=== PATIENT | female | born 1985 | race Hispanic/Latino ===

== ENCOUNTER 2019-03-14 15:40 | Emergency (ER) | payer MEDICAID, OTHER ==
[2019-03-14] MEDS ORDERED: ACETAMINOPHEN 325 MG TAB ONE (16:50)
[2019-03-14 17:00] LABS: APPEARANCE,URINE SL CLOUDY (CLEAR); BILIRUBIN,URINE NEGATIVE (NEGATIVE); COLOR,URINE YELLOW (YELLOW); GLUCOSE, URINE (UA) NEGATIVE (NEGATIVE); KETONES,URINE 15 mg/dL (NEGATIVE); LEUKOCYTE ESTERASE ,URINE NEGATIVE (NEGATIVE); NITRATE,URINE NEGATIVE (NEGATIVE); OCCULT BLOOD,URINE TRACE-INTACT (NEGATIVE); PH,URINE 7.5 (5.0-8.0); PROTEIN,URINE TRACE mg/dL (NEGATIVE)
[2019-03-14 17:02] LABS: HCG,QUAL RESULT NEGATIVE (NEGATIVE)
[2019-03-14 17:17] LABS: BACTERIA,URINE Few /HPF (None Seen); SQUAMOUS EPITHELIAL CELL,UR Moderate /HPF (0-2)
[2019-03-14 17:18] LABS: MUCUS,URINE Few LPF (None Seen)
[2019-03-14 17:27] LABS: RAPID GROUP A STREP NEGATIVE (NEGATIVE)
[2019-03-14] MEDS ORDERED: IBUPROFEN 600 MG TABLET ONE (17:49)
== END 2019-03-14 18:47 | disposition home or self-care (01) ==
LOC: EDH 15:40
DX: H66.92 Otitis media, unspecified, left ear (principal); M79.10 Myalgia, unspecified site
CPT/HCPCS: 81001; 81025; 87804; 87880

== ENCOUNTER 2019-11-08 16:48 | Emergency (ER) | payer SELFPAY ==
[2019-11-08] MEDS ORDERED: ACETAMINOPHEN EXTRA STRENGTH 500 MG TABLET ONE (17:04)
== END 2019-11-08 18:27 | disposition home or self-care (01) ==
LOC: EDH 16:48
DX: S06.0X0A Concussion without loss of consciousness, initial encounter (principal); S16.1XXA Strain of muscle, fascia and tendon at neck level, initial encounter; S00.12XA Contusion of left eyelid and periocular area, initial encounter; S00.11XA Contusion of right eyelid and periocular area, initial encounter; Y08.89XA Assault by other specified means, initial encounter; Y93.89 Activity, other specified; Y92.098 Other place in other non-institutional residence as the place of occurrence of the external cause; Y99.8 Other external cause status

== ENCOUNTER 2020-05-28 16:42 | Emergency (ER) | payer OTHER ==
[2020-05-28] MEDS ORDERED: TETRACAINE HCL 0.5% 4 ML OPHTH SOLN ONE (16:53)
[2020-05-28] MEDS ORDERED: FLUORESCEIN SODIUM 1 STRIP STRIP ONE (16:53)
[2020-05-28] MEDS ORDERED: IBUPROFEN 200 MG TAB ONE (17:15)
[2020-05-28 17:37] LABS: APPEARANCE,URINE Clear (CLEAR); BILIRUBIN,URINE Negative (NEGATIVE); COLOR,URINE Yellow (YELLOW); GLUCOSE, URINE (UA) Negative (NEGATIVE); KETONES,URINE Negative (NEGATIVE); LEUKOCYTE ESTERASE ,URINE Small (NEGATIVE); NITRATE,URINE Positive (NEGATIVE); OCCULT BLOOD,URINE Negative (NEGATIVE); PROTEIN,URINE Negative (NEGATIVE)
[2020-05-28 17:53] LABS: RBC,URINE 0-1 /HPF (0-1)
[2020-05-28 17:54] LABS: BACTERIA,URINE Moderate /HPF (None Seen); MUCUS,URINE Rare LPF (None Seen); SQUAMOUS EPITHELIAL CELL,UR Few /HPF (0-2)
[2020-05-28 17:55] LABS: YEAST,URINE BUDDING Rare /HPF (None Seen)
[2020-05-28] MEDS ORDERED: LIDOCAINE HCL-MPF 1% 2ML VIAL ONE (17:59)
[2020-05-28] MEDS ORDERED: CEFTRIAXONE SODIUM 1 GM ONE (18:00)
== END 2020-05-28 18:17 | disposition home or self-care (01) ==
LOC: EDH 16:42
DX: H11.31 Conjunctival hemorrhage, right eye (principal); N39.0 Urinary tract infection, site not specified
CPT/HCPCS: 81001; 81025; 87077; 87088; 87186; 96372; 99284; J0696; J3490

== ENCOUNTER 2021-01-24 12:45 | Emergency (ER) | payer OTHER ==
[2021-01-24] MEDS ORDERED: ACETAMINOPHEN-CODEINE 300/30MG TAB ONE (13:04)
[2021-01-24] MEDS ORDERED: CLINDAMYCIN HCL 150 MG CAP ONE (13:04)
== END 2021-01-24 13:29 | disposition home or self-care (01) ==
LOC: EDH 12:45
DX: J32.0 Chronic maxillary sinusitis (principal); J06.9 Acute upper respiratory infection, unspecified

== ENCOUNTER 2021-07-03 15:00 | Emergency (ER) | payer SELFPAY ==
[~2021-07-03] VITALS: Ht 165.1 cm; Wt 56.7 kg
[2021-07-03 15:01] VITALS: BP 132/83
[2021-07-03] MEDS ORDERED: AMOX-429 PO (15:40)
== END 2021-07-03 15:49 | disposition home or self-care (01) ==
LOC: EDH 15:00
DX: J32.9 Chronic sinusitis, unspecified (principal); H65.93 Unspecified nonsuppurative otitis media, bilateral

== ENCOUNTER 2021-10-03 18:01 | Emergency (ER) | payer OTHER ==
[~2021-10-03] VITALS: Ht 165.1 cm; Wt 56.7 kg
[~2021-10-03 18:01] MED LIST: AMOX-429 PO
[2021-10-03 18:03] VITALS: BP 119/83
[2021-10-03] MEDS ORDERED: IBUP-2070 PO (19:24)
[2021-10-03] MEDS ORDERED: PSEU120T62 PO (19:24)
[2021-10-03] MEDS ORDERED: ACET-3194 PO (19:24)
[2021-10-03] MEDS ORDERED: BROM237S PO (19:24)
[2021-10-03] MEDS ORDERED: ACETAMINOPHEN 500 MG TABLET ONE (19:29)
[2021-10-03] MEDS ORDERED: IBUPROFEN 600 MG TABLET ONE (19:29)
[2021-10-03] MEDS ORDERED: ACETAMINOPHEN 500 MG TABLET PO ONE (19:30)
[2021-10-03] MEDS ORDERED: IBUPROFEN 600 MG TABLET PO ONE (19:30)
== END 2021-10-03 19:53 | disposition home or self-care (01) ==
LOC: EDH 18:01
DX: U07.1 COVID-19 (principal); Z79.899 Other long term (current) drug therapy
CPT/HCPCS: 87635; 87804 ×2; 99283; C9803

== ENCOUNTER 2022-01-01 11:14 | Emergency (ER) | payer OTHER ==
[~2022-01-01] VITALS: Ht 165.1 cm; Wt 57.6 kg
[~2022-01-01 11:14] MED LIST changes: +ACET-3194 PO; +BROM237S PO; +IBUP-2070 PO; +PSEU120T62 PO
[2022-01-01 11:18] VITALS: BP 120/48
[2022-01-01] MEDS ORDERED: IBUP-2070 PO (12:41)
[2022-01-01] MEDS ORDERED: TETANUS/DIPHTHERIA TOXOID [ADULT] 0.5 ML VIAL IM SCH (13:00)
[2022-01-01] MEDS ORDERED: KETOROLAC 30MG VIAL (30MG/ML) IM ONE (13:00)
== END 2022-01-01 13:09 | disposition home or self-care (01) ==
LOC: EDH 11:14
DX: S80.01XA Contusion of right knee, initial encounter (principal); S50.01XA Contusion of right elbow, initial encounter; Z79.899 Other long term (current) drug therapy; Z90.89 Acquired absence of other organs; Z98.890 Other specified postprocedural states; Y08.89XA Assault by other specified means, initial encounter; Y93.89 Activity, other specified; Y92.89 Other specified places as the place of occurrence of the external cause; Y99.8 Other external cause status
CPT/HCPCS: 73070; 73562; 90471; 90714; 96372; 99284; J1885

== ENCOUNTER 2022-02-02 21:33 | Emergency (ER) | payer OTHER ==
[~2022-02-02] VITALS: Ht 165.1 cm; Wt 59.4 kg
[2022-02-02] MEDS ORDERED: CEPH500B PO (23:25)
[2022-02-02] MEDS ORDERED: IBUP-2070 PO (23:25)
[2022-02-02] MEDS ORDERED: IBUPROFEN 800 MG TAB PO ONE (23:30)
[2022-02-02 23:44] VITALS: BP 128/89
[2022-02-07] MEDS ORDERED: CLIN-141 PO (05:07)
== END 2022-02-02 23:47 | disposition home or self-care (01) ==
LOC: EDH 21:33
DX: S50.811A Abrasion of right forearm, initial encounter (principal); L03.113 Cellulitis of right upper limb; Z90.49 Acquired absence of other specified parts of digestive tract; Z79.899 Other long term (current) drug therapy; W57.XXXA Bitten or stung by nonvenomous insect and other nonvenomous arthropods, initial encounter; Y93.89 Activity, other specified; Y92.89 Other specified places as the place of occurrence of the external cause; Y99.8 Other external cause status

== ENCOUNTER 2022-05-14 10:02 | Emergency (ER) | payer OTHER ==
[~2022-05-14] VITALS: Ht 152.4 cm; Wt 57.6 kg
[~2022-05-14 10:02] MED LIST changes: +CEPH500B PO; +CLIN-141 PO
[2022-05-14 10:05] VITALS: BP 108/62
[2022-05-14 10:49] LABS: APPEARANCE,URINE CLEAR (CLEAR); BILIRUBIN,URINE NEGATIVE (NEGATIVE); COLOR,URINE YELLOW (YELLOW); GLUCOSE, URINE (UA) NEGATIVE (NEGATIVE); KETONES,URINE NEGATIVE (NEGATIVE); LEUKOCYTE ESTERASE ,URINE TRACE (NEGATIVE); NITRATE,URINE POSITIVE (NEGATIVE); OCCULT BLOOD,URINE NEGATIVE (NEGATIVE); PROTEIN,URINE NEGATIVE (NEGATIVE)
[2022-05-14 11:01] LABS: HCG,QUALITATIVE URINE NEGATIVE (NEGATIVE)
[2022-05-14 11:18] LABS: BACTERIA,URINE Many /HPF (None Seen); RBC,URINE 0-1 /HPF (0-1); WBC,URINE 0-1 /HPF (0-1)
[2022-05-14 11:19] LABS: MUCUS,URINE Few LPF (None Seen); SQUAMOUS EPITHELIAL CELL,UR Moderate /HPF (0-2)
[2022-05-14] MEDS ORDERED: PHEN-847 PO (11:23)
[2022-05-14] MEDS ORDERED: ONDA4TAB10 PO (11:23)
[2022-05-14] MEDS ORDERED: CEPH500B PO (11:23)
[2022-05-14] MEDS ORDERED: LIDOCAINE HCL MPF 1% 5ML VIAL IM SCH (11:30)
[2022-05-14] MEDS ORDERED: PHENAZOPYRIDINE HCL 200 MG TABLET PO ONE (11:30)
[2022-05-14] MEDS ORDERED: CEFTRIAXONE 1G VIAL IVP ONE (11:30)
[2022-05-14] MEDS ORDERED: ONDANSETRON ODT 4MG TAB SL ONE (11:30)
[2022-05-14] MEDS ORDERED: LIDOCAINE HCL 1% 10 ML VIAL ONE (11:32)
== END 2022-05-14 11:53 | disposition home or self-care (01) ==
LOC: EDH 10:02
DX: N39.0 Urinary tract infection, site not specified (principal); Z79.1 Long term (current) use of non-steroidal anti-inflammatories (NSAID); Z90.49 Acquired absence of other specified parts of digestive tract
CPT/HCPCS: 99284; 96374; 87077; 87088; 87186; 81001; 81025; 96372; J0696; J3490

== ENCOUNTER 2023-09-02 08:32 | Emergency (ER) | payer OTHER ==
[~2023-09-02] VITALS: Ht 165.1 cm; Wt 56.7 kg
[~2023-09-02 08:32] MED LIST changes: +ONDA4TAB10 PO; +PHEN-847 PO
[2023-09-02 08:37] VITALS: BP 120/80; PULSE 86; RESP 16; O2SAT 100
[2023-09-02 09:14] LABS: RAPID GROUP A STREP negative (NEGATIVE)
[2023-09-02 09:24] LABS: INFLUENZA TYPE A Negative For Type A (NEGATIVE); INFLUENZA TYPE B Negative For Type B (NEGATIVE)
[2023-09-02 09:35] LABS: SARS-CoV-2, RNA, NAAT POSITIVE SARS CoV-2 (NEGATIVE)
[2023-09-02] MEDS ORDERED: GUAIFENESIN/DEXTROMETHORPHAN 1 EACH TAB.SR.12H PO ONE (10:00)
[2023-09-02] MEDS ORDERED: DEXAMETHASONE SOD PHOSPHATE 4 MG/ML 1ML VIAL IM ONE (10:30)
[2023-09-02] MEDS ORDERED: FLUT16H NASAL (10:37)
[2023-09-02] MEDS ORDERED: BROM118S48 PO (10:37)
[2023-09-02] MEDS ORDERED: AMOX1TAB16 PO (10:37)
== END 2023-09-02 10:50 | disposition home or self-care (01) ==
LOC: EDH 08:32
DX: U07.1 COVID-19 (principal); J32.0 Chronic maxillary sinusitis; R50.9 Fever, unspecified; R05.9 Cough, unspecified; R09.81 Nasal congestion
CPT/HCPCS: 99284; 71045; 87635; 87880; 87804 ×2; 70210; 96372; J1100; C9803

== ENCOUNTER 2024-02-14 20:49 | Emergency (ER) | payer OTHER ==
[~2024-02-14] VITALS: Ht 165.1 cm; Wt 58.5 kg
[~2024-02-14 20:49] MED LIST changes: +AMOX1TAB16 PO; +BROM118S48 PO; +FLUT16H NASAL
[2024-02-14 21:47] VITALS: BP 125/62; PULSE 79; RESP 18; O2SAT 98
== END 2024-02-14 21:51 ==
LOC: EDH 20:49 → EEVIPCON 20:49 → EDH 21:51
DX: Z02.89 Encounter for other administrative examinations (principal); Z79.2 Long term (current) use of antibiotics; Z79.899 Other long term (current) drug therapy; Z90.49 Acquired absence of other specified parts of digestive tract; V89.2XXA Person injured in unspecified motor-vehicle accident, traffic, initial encounter; Y93.I9 Activity, other involving external motion; Y92.488 Other paved roadways as the place of occurrence of the external cause; Y99.8 Other external cause status

== ENCOUNTER 2024-05-09 11:21 | Emergency (ER) | payer OTHER ==
[~2024-05-09] VITALS: Ht 167.6 cm; Wt 56.7 kg
[~2024-05-09 11:21] MED LIST changes: +ONDA-243 PO; -ONDA4TAB10 PO
[2024-05-09 12:54] LABS: BASOPHILS # (AUTO) 0.02 K/uL (0.00-0.20); BASOPHILS % (AUTO) 0.3 % (0.0-5.0); EOSINOPHILS # (AUTO) 0.01 K/uL (0.00-0.70); EOSINOPHILS % (AUTO) 0.1 % (0.0-8.0); IMMATURE GRANULOCYTE ABSOLUTE 0.02 K/uL (0-1); LYMPHOCYTES % (AUTO) 13.4 % (21.0-51.0); MEAN CORPUSCULAR HEMOGLOBIN 19.2 pg (27.0-33.0); MEAN CORPUSCULAR HGB CONC 28.3 g/dL (32.0-36.0); MEAN CORPUSCULAR VOLUME 67.9 fL (79-99); MONOCYTES # (AUTO) 0.6 K/uL (0.1-1.0); MONOCYTES % (AUTO) 7.6 % (3.0-13.0); NEUTROPHILS # (AUTO) 5.8 K/uL (1.8-7.7); NEUTROPHILS % (AUTO) 78.3 % (40.0-77.0); PLATELET COUNT (AUTO) 263 K/uL (130-400); RED BLOOD CELL COUNT(AUTO) 4.27 MIL/uL (4.00-5.50); RED CELL DISTRIBUTION WIDTH 18.2 % (11.0-15.5); WHITE BLOOD COUNT (AUTO) 7.4 K/uL (4.8-10.8)
[2024-05-09 12:59] LABS: APPEARANCE,URINE CLOUDY (CLEAR); BILIRUBIN,URINE NEGATIVE (NEGATIVE); COLOR,URINE YELLOW (YELLOW); GLUCOSE, URINE (UA) NEGATIVE (NEGATIVE); KETONES,URINE 40 mg/dL (NEGATIVE); LEUKOCYTE ESTERASE ,URINE 75 Leu/uL (NEGATIVE); NITRATE,URINE NEGATIVE (NEGATIVE); OCCULT BLOOD,URINE MODERATE (NEGATIVE); PH,URINE 6.5 (5.0-8.0); PROTEIN,URINE 30 mg/dL (NEGATIVE)
[2024-05-09 13:00] LABS: HCG,QUALITATIVE URINE NEGATIVE (NEGATIVE)
[2024-05-09 13:03] LABS: ADD UA MICROSCOPIC YES
[2024-05-09 13:05] LABS: ALBUMIN 3.4 g/dL (3.5-5.0); CREATININE 0.7 mg/dL (0.5-1.0)
[2024-05-09 13:08] LABS: BACTERIA,URINE FEW /HPF (None Seen); MUCUS,URINE MANY LPF (None Seen); OTHER CASTS, URINE 3 /LPF (None Seen); SQUAMOUS EPITHELIAL CELL,UR MOD /HPF (0-2)
[2024-05-09 13:09] LABS: BILIRUBIN,TOTAL 0.3 mg/dL (0.2-1.0)
[2024-05-09] MEDS ORDERED: CEPH500T PO (14:45)
[2024-05-09] MEDS: POTASSIUM BICARB/CIT AC 25 MEQ TABLET.EFF PO ONE (15:24)
[2024-05-09] MEDS: CEFTRIAXONE 1G VIAL IVPB ONE (15:24)
[2024-05-09 15:25] VITALS: BP 118/74; PULSE 82; RESP 16; O2SAT 100
[2024-05-09] MEDS: LIDOCAINE HCL 1% 20 ML VIAL ONE (15:25)
== END 2024-05-09 15:44 | disposition home or self-care (01) ==
LOC: EDH 11:21
DX: N39.0 Urinary tract infection, site not specified (principal); D64.9 Anemia, unspecified; E87.6 Hypokalemia; Z90.49 Acquired absence of other specified parts of digestive tract
CPT/HCPCS: 99285; 74176; 96374; 80053; 85025; 87086 ×2; 87186; 81001; 81025; 36415; J0696

== ENCOUNTER 2024-05-18 09:35 | Emergency (ER) | payer OTHER, MEDICAID ==
[~2024-05-18] VITALS: Ht 167.6 cm; Wt 56.7 kg
[~2024-05-18 09:35] MED LIST changes: +CEPH500T PO
[2024-05-18] MEDS ORDERED: ACET-2079 PO (10:46)
[2024-05-18 11:08] VITALS: BP 114/65; PULSE 78; RESP 18; O2SAT 98
== END 2024-05-18 11:09 | disposition home or self-care (01) ==
LOC: EDH 09:35
DX: S90.31XA Contusion of right foot, initial encounter (principal); M79.671 Pain in right foot; Z79.899 Other long term (current) drug therapy; W22.8XXA Striking against or struck by other objects, initial encounter; Y93.89 Activity, other specified; Y92.89 Other specified places as the place of occurrence of the external cause; Y99.8 Other external cause status
CPT/HCPCS: 73630

== ENCOUNTER 2024-07-19 11:32 | Emergency (ER) | payer OTHER, MEDICAID ==
[~2024-07-19] VITALS: Ht 165.1 cm; Wt 57.6 kg
[~2024-07-19 11:32] MED LIST changes: +ACET-2079 PO
[2024-07-19 12:12] LABS: BASOPHILS # (AUTO) 0.03 K/uL (0.00-0.20); BASOPHILS % (AUTO) 0.5 % (0.0-5.0); EOSINOPHILS # (AUTO) 0.04 K/uL (0.00-0.70); EOSINOPHILS % (AUTO) 0.6 % (0.0-8.0); HEMATOCRIT 27.6 % (36-48); IMMATURE GRANULOCYTE ABSOLUTE 0.02 K/uL (0-1); LYMPHOCYTES % (AUTO) 16.5 % (21.0-51.0); MEAN CORPUSCULAR HEMOGLOBIN 18.3 pg (27.0-33.0); MEAN CORPUSCULAR HGB CONC 27.9 g/dL (32.0-36.0); MEAN CORPUSCULAR VOLUME 65.6 fL (79-99); MONOCYTES # (AUTO) 0.4 K/uL (0.1-1.0); MONOCYTES % (AUTO) 6.3 % (3.0-13.0); NEUTROPHILS # (AUTO) 4.8 K/uL (1.8-7.7); NEUTROPHILS % (AUTO) 75.8 % (40.0-77.0); PLATELET COUNT (AUTO) 257 K/uL (130-400); RED BLOOD CELL COUNT(AUTO) 4.21 MIL/uL (4.00-5.50); RED CELL DISTRIBUTION WIDTH 18.6 % (11.0-15.5); WHITE BLOOD COUNT (AUTO) 6.3 K/uL (4.8-10.8)
[2024-07-19 12:29] LABS: CREATININE 0.6 mg/dL (0.5-1.0); POTASSIUM 3.1 mmol/L (3.5-5.1)
[2024-07-19 13:32] LABS: HCG,QUALITATIVE URINE NEGATIVE (NEGATIVE)
[2024-07-19 13:35] LABS: APPEARANCE,URINE CLOUDY (CLEAR); BACTERIA,URINE RARE /HPF (None Seen); BILIRUBIN,URINE NEGATIVE (NEGATIVE); COLOR,URINE YELLOW (YELLOW); GLUCOSE, URINE (UA) NEGATIVE (NEGATIVE); KETONES,URINE 40 mg/dL (NEGATIVE); LEUKOCYTE ESTERASE ,URINE 25 Leu/uL (NEGATIVE); MUCUS,URINE MANY LPF (None Seen); NITRATE,URINE NEGATIVE (NEGATIVE); OCCULT BLOOD,URINE NEGATIVE (NEGATIVE); PROTEIN,URINE 10 mg/dL (NEGATIVE); SQUAMOUS EPITHELIAL CELL,UR MOD /HPF (0-2)
[2024-07-19 13:39] LABS: INFLUENZA TYPE A Negative For Type A (NEGATIVE); INFLUENZA TYPE B Negative For Type B (NEGATIVE)
[2024-07-19 13:40] LABS: COVID19 (SARS ANTIGEN RAPID) PRESUMPTIVE NEGATIVE (NEGATIVE)
[2024-07-19] MEDS ORDERED: CEPH500B PO (13:52)
[2024-07-19] MEDS: PoTASSium BIcarbonate/CIT AC 25 MEQ TABLET.EFF PO STA (14:01)
[2024-07-19 14:12] VITALS: BP 132/74; PULSE 60; RESP 16; TEMP 98.2; O2SAT 99
== END 2024-07-19 14:15 | disposition home or self-care (01) ==
LOC: EDH 11:32
DX: D64.9 Anemia, unspecified (principal); N39.0 Urinary tract infection, site not specified; E87.6 Hypokalemia; Z20.822 Contact with and (suspected) exposure to COVID-19; Z79.899 Other long term (current) drug therapy; Z90.49 Acquired absence of other specified parts of digestive tract; Z98.890 Other specified postprocedural states
CPT/HCPCS: 36415; 80048; 81001; 81025; 85025; 87426; 87804

== ENCOUNTER 2025-05-26 15:54 | Emergency (ER) | payer MEDICAID, OTHER ==
[~2025-05-26] VITALS: Ht 167.6 cm; Wt 61.7 kg
[~2025-05-26 15:54] MED LIST changes: +IBUP-1492 PO; -IBUP-2070 PO
--- NOTE | 2025-05-26 16:29 | ERN ---
ED Note History of Present Illness Stated Complaint: SORE THROAT Chief Complaint: Sore Throat Time Seen by MD: 16:16 Dictation: PATIENT IS A 39-YEAR-OLD FEMALE COMING IN TODAY WITH FLU-LIKE SYMPTOMS TO INCLUDE BODY ACHES, FEVER CHILLS, RHINITIS CLEAR AND SORE THROAT WITH PAINFUL SWALLOWING WITH DRY COUGH FOR TWO DAYS. NO NAUSEA VOMITING NO DIARRHEA NO LOSS OF TASTE OR SMELL. SHE STATES HER CHILDREN JUST STARTED SCHOOL AND THEY ARE BOTH 2ND GOING TO SEE THEIR DOCTOR STATE. STATES SHE WAS NOT ABLE TO GET INTO HER PRIMARY CARE DOCTOR, TOOK TYLENOL PRIOR TO ARRIVAL. Allergies: Coded Allergies: No Known Allergies (Unverified Allergy, Unknown, 07/03/21) Home Meds Active Scripts Cephalexin Monohydrate (Keflex) 500 Mg Cap, 500 MG PO BID for 7 Days, #14 CAP Prov:EPHRAIM CANDELARIO I PA 07/19/24 Acetaminophen with Codeine (Acetaminophen-Cod #3 Tablet) 300 Mg-30 Mg Tablet, 1 TAB PO Q4H PRN for MODERATE TO SEVERE, #12 TAB 0 Refills Prov:SAHARA BELTRÁN NP 05/18/24 Cephalexin (Cephalexin) 500 Mg Tablet, 500 MG PO BID for 7 Days, #14 TAB Prov:JORDY ESCOBAR 05/09/24 Fluticasone Propionate (Flonase Nasal [place]) 50 Mcg/Actuation [place], 1 SPRAY NASAL ONCE, #1 BOTTLE 0 Refills Prov:FITZ ROBERT [facility] 09/02/23 D-Methorphan Hb/P-Epd HCl/Bpm (Bromfed Dm Cough Syrup) 2 Mg-30 Mg-10 Mg/5 Ml Syrup, 10 ML PO Q6HPRN PRN for COUGH/COLD SYMPTOMS, #240 ML 0 Refills Prov:FITZ ROBERT 09/02/23 Amoxicillin/Potassium Clav (Amox Tr-K Clv 875-125 mg Tab) 875 Mg-125 Mg Tablet, 1 EACH PO BID for 10 Days, #20 TAB 0 Refills Prov:FITZ ROBERT 09/02/23 Ondansetron (Ondansetron Odt) 4 Mg Tab.rapdis, 4 MG PO TIDP, #21 TAB Prov:VIRAL ESCOBAR 05/14/22 Phenazopyridine HCl (Pyridium) 200 Mg Tab, 200 MG PO TIDPC for 3 Days, #9 TAB TAKE WITH FOOD TO PREVENT STOMACH UPSET. Prov:VIRAL ESCOBAR 05/14/22 Cephalexin Monohydrate (Keflex) 500 Mg Cap, 500 MG PO TID for 7 Days, #21 CAP Prov:VIRAL ESCOBAR 05/14/22 Clindamycin HCl (Clindamycin HCl) 300 Mg Capsule, 1 CAP PO QID for 10 Days, #40 CAP 0 Refills Prov:MADI GIBBONS MD 02/07/22 Ibuprofen (Ibuprofen) 600 Mg Tablet, 600 MG PO TID PRN for PAIN, #45 TAB Prov:VIRAL ESCOBAR 02/02/22 Cephalexin Monohydrate (Keflex) 500 Mg Cap, 500 MG PO TID for 7 Days, #21 CAP Prov:VIRAL ESCOBAR 02/02/22 Ibuprofen (Ibuprofen) 600 Mg Tablet, 600 MG PO Q6H PRN for PAIN, #7 TAB Prov:BABS GUAN 01/01/22 Brompheniram/Phenylephrine/Dm (Dimetapp Cold & Cough Liquid) 237 Ml Solution, 10 ML PO TID for 5 Days, #100 ML Prov:ALLA JURADO 10/03/21 Pseudoephedrine HCl (Sudafed 12 Hour) 120 Mg Tablet.er, 120 MG PO BID for 5 Days, #10 TAB Prov:ALLA JURADO 10/03/21 Ibuprofen (Ibuprofen) 600 Mg Tablet, 600 MG PO Q6H PRN for PAIN, #15 TAB Prov:ALLA JURADO 10/03/21 Acetaminophen (Acetaminophen) 650 Mg Tablet.er, 650 MG PO Q4H for 5 Days, #15 TAB Prov:ALLA JURADO 10/03/21 Amoxicillin/Potassium Clav (Augmentin 875-125 Tablet) 1 Each Tablet, 1 TAB PO BID for 10 Days, #20 TAB 0 Refills Prov:DIOMEDES CORONA NP 07/03/21 Past Medical History Past Medical History: No Pertinent History Surgical History: Appendectomy Surgical History Other: 2 ECTOPIC PREGANCIES. Family History: Negative Social History: ETOH : 7 Para: 4 Aborts: 3 RN Note Reviewed/Agreed w/PFSH: Yes Review of System Dictation CONSTITUTIONAL: NEGATIVE EXCEPT FOR HPI FEVER CHILLS HEAD/FACE: NEGATIVE EXCEPT FOR HPI EENT: NEGATIVE EXCEPT FOR HPI CLEAR RHINITIS WITH SORE RESPIRATORY: NEGATIVE EXCEPT FOR HPI THROAT DRY COUGH GASTROINTESTINAL/ABDOMINAL: NEGATIVE EXCEPT FOR HPI GENITOURINARY: NEGATIVE EXCEPT FOR HPI MUSCULOSKELETAL: NEGATIVE EXCEPT FOR HPI INTEGUMENTARY: NEGATIVE EXCEPT FOR HPI NEUROLOGICAL/PSYCH: NEGATIVE EXCEPT FOR HPI HEMATOLOGIC/LYMPHATIC: NEGATIVE EXCEPT FOR HPI ALL SYSTEMS NEGATIVE, EXCEPT NOTED ABOVE. 13 POINT REVIEW OF SYSTEMS ASSESSED AND ALL NEGATIVE EXCEPT FOR ABOVE. Initial Vital Sign VS Vital Signs Date Time Temp Pulse Resp B/P (MAP) Pulse Ox O2 Delivery O2 Flow Rate FiO2 05/26/25 15:58 98.2 83 18 129/89 99 Room Air 0 05/26/25 16:00 21 Physical Exam Dictation VITAL SIGNS REVIEWED GENERAL APPEARANCE: ALERT, ORIENTED X 3, MILD ACUTE DISTRESS, WELL DEVELOPED, NOURISHED. HEAD AND FACE: NON-TRAUMATIC. EYES: PERRL, PINK CONJUNCTIVAS, EYELID NO TRAUMA, ANTERIOR CHAMBER WITH ARCUS SENILIS. EARS: PINNAS INTACT AND NO SIGNS OF TRAUMA OR ERYTHEMA EAR CANALS CLEAR AND NO DISCHARGE TM NO ERYTHEMA NOSE: CLEAR DISCHARGE, NO BLEEDING. OROPHARYNX: MOUTH NORMAL, TONGUE PINK, PHARYNX CLEAR, MILD PHARYNGEAL ERYTHEMA, TONSILS NO EXUDATES, NO ABSCESSES NOTED, MUCOUS MEMBRANE MOIST MIDLINE, VOICE IS CLEAR NECK: SUPPLE, NON-TENDER, NO THYROMEGALY, NO MASSES, NO JVD, NO BRUITS BREAST:DEFERRED CHEST:NO TENDERNESS, NO CREPITUS, NO PARADOXICAL MOVEMENT, NO RETRACTIONS LUNGS:CLEAR, WELL-VENTILATED, SYMMETRIC, NO RALES, NO WHEEZING, NO RHONCHI, NO STRIDOR, GOOD BREATH SOUNDS BILATERALLY HEART: REGULAR RATE, REGULAR RHYTHM, NO MURMUR, NO GALLOPS VASCULAR: NO PERIPHERAL EDEMA, ABDOMEN: SOFT, POSITIVE BOWEL SOUNDS, NONDISTENDED, NO GUARDING, NONTENDER, NO REBOUND, NO MASSES NO HEPATOMEGALY, NO SPLENOMEGALY, NO HUTCHISON'S SIGN, NO HERNIAS. RECTAL: DEFERRED GENITAL: DEFERRED NEUROLOGICAL: NORMAL SPEECH, MOTOR FUNCTION INTACT, SENSORY FUNCTION INTACT MUSCULOSKELETAL: NECK NONTENDER, FULL RANGE OF MOTION, BACK NONTENDER, FULL RANGE OF MOTION, EXTREMITIES: NONTENDER, FULL RANGE OF MOTION SKIN: COLOR PINK, DRY, NO TURGOR, NO RASH, NO LACERATIONS, NO ABRASIONS, NO CONTUSIONS. LYMPHATIC: DEFERRED Results (Laboratory/Radiology) Laboratory/Radiology Laboratory Tests Test 05/26/25 16:30 Influenza Type A Antigen Negative For Type A Influenza Type B Antigen Negative For Type B SARS-CoV-2 Antigen (Rapid) POSITIVE FOR SARS AG Group A Streptococcus Rapid negative (NEGATIVE) Labs Reviewed?: Yes ED Course ED Course Orders Procedure Category Date Status Time Covid19 (Sars Antigen LAB 05/26/25 Complete Rapid) 16:25 Rapid (Group A Strep) LAB 05/26/25 Complete 16:25 Influenza Type A & B, LAB 05/26/25 Complete Rapid 16:25 Vital Signs Date Time Temp Pulse Resp B/P (MAP) Pulse Ox O2 Delivery O2 Flow Rate FiO2 05/26/25 17:04 98.2 80 18 130/89 99 Room Air* 0 21 05/26/25 16:00 98.2 83 18 129/89 99 Room Air* 0 21 05/26/25 15:58 98.2 83 18 129/89 99 Room Air 0 1705/PATIENT POSITIVE FOR SARS COVID. WE WILL BE DISCHARGED HOME AND TOLD TO FOLLOW UP WITH HER PRIMARY CARE DOCTOR IN THE NEXT 1-2 DAYS Medical Decision Making MDM MEDICAL DISCHARGE MAKING BASED ON LABS FOR FLU COVID AND STREP. PATIENT POSITIVE FOR SARS COVID DISCHARGED HOME WIT MEDROL DOSEPAK AND ALBUTEROL TOLD TO SEE HER PRIMARY CARE DOCTOR FOR FOLLOW UP INCREASE FLUIDS. DX & DISP Disposition: Discharge Departure Impression: Primary Impression: COVID-19 virus infection Condition: Stable Scripts Methylprednisolone (Medrol) 4 Mg Tab.ds.pk 1 TAB PO AD for 6 Days, #21 TAB 0 Refills 6 on day 1 then reduce by one tablet daily until gone Prov: SAHARA BELTRÁN NP 05/26/25 Albuterol Sulfate (Ventolin Hfa/Proventil Hfa/Proair Hfa) 90 Mcg Puff 2 PUFF IH Q4H for WHEEZING, #1 INHALER 0 Refills Prov: SAHARA BELTRÁN NP 05/26/25 Additional Instructions: FOLLOW-UP WITH PRIMARY CARE PROVIDER IN 1 TO 2 DAYS. TAKE MEDICATIONS DIRECTED HERE IN THE EMERGENCY ROOM. OKAY TO CONTINUE HOME MEDICATIONS UNLESS OTHERWISE DISCUSSED DURING YOUR VISIT IN THE EMERGENCY ROOM TODAY. RETURN TO YOUR NEAREST EMERGENCY ROOM IF SYMPTOMS WORSEN OR IF THERE IS NO IMPROVEMENT. CALL 911 IF YOU NEED IMMEDIATE ASSISTANCE. TAKE TYLENOL OR MOTRIN OV [id number] NEEDED AND IF NO CONTRAINDICATIONS ARE PRESENT. INCREASE ORAL HYDRATION. A WOUND CULTURE OR URINE CULTURE WAS ORDERED HERE IN THE EMERGENCY ROOM DEPARTMENT PLEASE FOLLOW-UP WITH PRIMARY CARE PROVIDER AND ADVISE THEM TO GET REPEAT PORTS FROM OUR FACILITY. IF YOU HAD ANY SOFY WRAP/SPLINTS THAT WERE APPLIED HERE, PLEASE DO NOT REMOVE THEM UNTIL YOU SEE YOUR PRIMARY CARE OR SPECIALTY. TAKE MEDROL DOSEPAK DIRECTED UNTIL GONE. INCREASE YOUR WATER INTAKE. USE ALBUTEROL INHALER EVERY 4 HOURS WHILE AWAKE FOR SHORTNESS A BREATH. NO WORK UNTIL CLEARED BACK BY YOUR PRIMARY CARE DOCTOR Referrals: SELF,REFERRAL (PCP) I have reviewed the case, and I agree with, Diagnosis and Plan SAHARA BELTRÁN NP May 26, 2025 16:29
[2025-05-26 16:43] LABS: RAPID GROUP A STREP negative (NEGATIVE)
[2025-05-26 16:55] LABS: INFLUENZA TYPE A Negative For Type A (NEGATIVE); INFLUENZA TYPE B Negative For Type B (NEGATIVE)
[2025-05-26 16:59] LABS: COVID19 (SARS ANTIGEN RAPID) POSITIVE FOR SARS AG (NEGATIVE)
[2025-05-26 17:04] VITALS: BP 130/89; PULSE 80; RESP 18; TEMP 98.3; O2SAT 99
[2025-05-26] MEDS ORDERED: ALBUHFA IH (17:09)
[2025-05-26] MEDS ORDERED: METH4TAB3 PO (17:09)
== END 2025-05-26 17:18 | disposition home or self-care (01) ==
LOC: EDH 15:54
DX: U07.1 COVID-19 (principal); Z79.899 Other long term (current) drug therapy; Z90.49 Acquired absence of other specified parts of digestive tract
CPT/HCPCS: 87426; 87804; 87880; 99283

== ENCOUNTER 2025-07-06 14:35 | Emergency (ER) | payer OTHER ==
[~2025-07-06] VITALS: Ht 167.6 cm; Wt 64.4 kg
[~2025-07-06 14:35] MED LIST changes: +ALBUHFA IH; +METH4TAB3 PO
[2025-07-06 15:50] VITALS: BP 116/75; PULSE 91; RESP 19; TEMP 98.9; O2SAT 100
[2025-07-06 16:07] LABS: APPEARANCE,URINE CLOUDY (CLEAR); GLUCOSE, URINE (UA) NEGATIVE (NEGATIVE); LEUKOCYTE ESTERASE ,URINE 25 Leu/uL (NEGATIVE); NITRATE,URINE NEGATIVE (NEGATIVE); OCCULT BLOOD,URINE SMALL (NEGATIVE)
[2025-07-06 16:11] LABS: SQUAMOUS EPITHELIAL CELL,UR FEW /HPF (0-2)
--- NOTE | 2025-07-06 16:33 | HMCIMG ---
EXAM: CR Chest, 1 View. CLINICAL HISTORY: Cough COMPARISON: 09/02/23 FINDINGS: LUNGS: There is no mass, infiltrate, or acute pulmonary abnormality. PLEURAL SPACES: No pleural effusion or pneumothorax. MEDIASTINUM: Cardiac size and mediastinal contours within normal limits. BONES: No acute osseous abnormality. IMPRESSION: No acute cardiopulmonary pathology is evident. /[place]
[2025-07-06 16:34] LABS: RAPID GROUP A STREP negative (NEGATIVE)
[2025-07-06 16:45] LABS: COVID19 (SARS ANTIGEN RAPID) PRESUMPTIVE NEGATIVE (NEGATIVE); INFLUENZA TYPE A Negative For Type A (NEGATIVE); INFLUENZA TYPE B Negative For Type B (NEGATIVE)
--- NOTE | 2025-07-06 16:58 | ERN ---
General Chief Complaint: Cough Stated Complaint: CHEST TIGHTNESS Time Seen by MD: 14:52 Time Seen by Midlevel: 14:52 Source: patient History of Present Illness Initial Comments 39-year-old female who presents to the emergency department due to a fever onset two days. Patient reports she has been taking Tylenol and Motrin to control the fever, last dose 2 hours ago. Reports cough, and frequent urination. Patient states her son was sick a week ago with similar symptoms. Denies significant past medical history. Allergies: Coded Allergies: No Known Allergies (Unverified Allergy, Unknown, 07/03/21) Home Meds Active Scripts Cephalexin (Cephalexin) 500 Mg Tablet, 1 TAB PO BID for 7 Days, #14 TAB 0 Refills Prov:JORDY ESCOBAR [facility] 07/06/25 Methylprednisolone (Medrol) 4 Mg Tab.ds.pk, 1 TAB PO AD for 6 Days, #21 TAB 0 Refills 6 on day 1 then reduce by one tablet daily until gone Prov:SAHARA BELTRÁN [facility] 05/26/25 Albuterol Sulfate (Ventolin Hfa/Proventil Hfa/Proair Hfa) 90 Mcg Puff, 2 PUFF IH Q4H for WHEEZING, #1 INHALER 0 Refills Prov:SAHARA BELTRÁN [facility] 05/26/25 Cephalexin Monohydrate (Keflex) 500 Mg Cap, 500 MG PO BID for 7 Days, #14 CAP Prov:EPHRAIM CANDELARIO I PAC 07/19/24 Acetaminophen with Codeine (Acetaminophen-Cod #3 Tablet) 300 Mg-30 Mg Tablet, 1 TAB PO Q4H PRN for MODERATE TO SEVERE, #12 TAB 0 Refills Prov:SAHARA BELTRÁN [facility] 05/18/24 Cephalexin (Cephalexin) 500 Mg Tablet, 500 MG PO BID for 7 Days, #14 TAB Prov:JORDY ESCOBAR PAC 05/09/24 Fluticasone Propionate (Flonase Nasal [place]) 50 Mcg/Actuation [place], 1 SPRAY NASAL ONCE, #1 BOTTLE 0 Refills Prov:FITZ ROBERT [facility] 09/02/23 D-Methorphan Hb/P-Epd HCl/Bpm (Bromfed Dm Cough Syrup) 2 Mg-30 Mg-10 Mg/5 Ml Syrup, 10 ML PO Q6HPRN PRN for COUGH/COLD SYMPTOMS, #240 ML 0 Refills Prov:FITZ ROBERT [employer] 09/02/23 Amoxicillin/Potassium Clav (Amox Tr-K Clv 875-125 mg Tab) 875 Mg-125 Mg Tablet, 1 EACH PO BID for 10 Days, #20 TAB 0 Refills Prov:FITZ ROBERT [facility] 09/02/23 Ondansetron (Ondansetron Odt) 4 Mg Tab.rapdis, 4 MG PO TIDP, #21 TAB Prov:VIRAL ESCOBAR 05/14/22 Phenazopyridine HCl (Pyridium) 200 Mg Tab, 200 MG PO TIDPC for 3 Days, #9 TAB TAKE WITH FOOD TO PREVENT STOMACH UPSET. Prov:VIRAL ESCOBAR 05/14/22 Cephalexin Monohydrate (Keflex) 500 Mg Cap, 500 MG PO TID for 7 Days, #21 CAP Prov:VIRAL ESCOBAR 05/14/22 Clindamycin HCl (Clindamycin HCl) 300 Mg Capsule, 1 CAP PO QID for 10 Days, #40 CAP 0 Refills Prov:MADI GIBBONS MD 02/07/22 Ibuprofen (Ibuprofen) 600 Mg Tablet, 600 MG PO TID PRN for PAIN, #45 TAB Prov:VIRAL ESCOBAR 02/02/22 Cephalexin Monohydrate (Keflex) 500 Mg Cap, 500 MG PO TID for 7 Days, #21 CAP Prov:VIRAL ESCOBAR 02/02/22 Ibuprofen (Ibuprofen) 600 Mg Tablet, 600 MG PO Q6H PRN for PAIN, #7 TAB Prov:BABS GUAN [facility] 01/01/22 Brompheniram/Phenylephrine/Dm (Dimetapp Cold & Cough Liquid) 237 Ml Solution, 10 ML PO TID for 5 Days, #100 ML Prov:ALLA JURADO 10/03/21 Pseudoephedrine HCl (Sudafed 12 Hour) 120 Mg Tablet.er, 120 MG PO BID for 5 Days, #10 TAB Prov:ALLA JURADO 10/03/21 Ibuprofen (Ibuprofen) 600 Mg Tablet, 600 MG PO Q6H PRN for PAIN, #15 TAB Prov:ALLA JURADO 10/03/21 Acetaminophen (Acetaminophen) 650 Mg Tablet.er, 650 MG PO Q4H for 5 Days, #15 TAB Prov:ALLA JURADO 10/03/21 Amoxicillin/Potassium Clav (Augmentin 875-125 Tablet) 1 Each Tablet, 1 TAB PO BID for 10 Days, #20 TAB 0 Refills Prov:DIOMEDES CORONA NP 07/03/21 Past Medical History Past Medical History: No Pertinent History Medical History Other: denies pmhx Past Surgical History: Appendectomy Surgical History Other: 2 ECTOPIC PREGANCIES. Family History Family History: Negative Social History Social History: ETOH Female( History) : 7 Para: 4 Aborts: 3 ROS Dictation Constitutional: Positive for fever Negative for chills, and weight loss Eyes: Negative for injury, pain,redness, and discharge ENT: Negative for injury,pain or swelling Cardiovascular: Negative for chest pain, palpitations, and edema Respiratory: Positive for cough Negative for shortness of breath, and wheezing, Abdomen/GI: Negative for abdominal pain, nausea, vomiting, diarrhea, and constipation Back: Negative for injury and pain : Positive for frequent urination Negative for painful urination, bleeding or discharge MS/Extremity: Negative for injury and deformity Skin: Negative for rash, and discoloration Neuro: Negative for headache, weakness, numbness, tingling, and seizure Psych: Negative for suicide ideation, homicidal ideation, and hallucinations Physical Exam Physical Exam Dictation Reports General: awake, alert, no acute distress Head/Face: Normocephalic, atraumatic Eyes: PERRL, EOMI, normal conjuctiva ENT: oral cavity clear, TMs clear, oral mucosa moist Neck: Supple, normal range of motion Cardiovascular: RRR, normal S1/S2 Respiratory: CTAB, no respiratory distress, no rales or wheezes Abdomen: Soft, non-tender, non-distended, normal bowel sounds, no guarding or rebound. Skin: Warm, dry, normal turgor, no rash MS/Extremity: Pulses equal, no cyanosis, neurovascular intact, FROM Neuro: COAx4, GCS 15, strength 5/5, CN 2-12 intact, normal cerebellar exam, normal gait, Psych: Normal behavior, mood, and affect normal Results Laboratory and Microbiology Lab and Micro Result Laboratory Tests Test 07/06/25 15:56 Urine Color YELLOW (YELLOW) Urine Appearance CLOUDY (CLEAR) H Urine pH 6.0 (5.0-8.0) Urine Specific [place] 1.028 (1.001-1.031) Urine Protein 10 mg/dL (NEGATIVE) H Urine Glucose (UA) NEGATIVE mg/dL (NEGATIVE) Urine Ketones 5 mg/dL (NEGATIVE) H Urine Occult Blood SMALL (NEGATIVE) H Urine Nitrate NEGATIVE (NEGATIVE) Urine Bilirubin NEGATIVE mg/dL (NEGATIVE) Urine Urobilinogen 2.0 mg/dL (0.2-1.0) H Urine Leukocyte Esterase 25 [place]nn/uL (NEGATIVE) H Urine RBC 2-5 /HPF (0-1) H Urine WBC 2-5 /HPF (0-1) H Urine Squamous Epithelial Cells FEW /HPF (0-2) Urine Bacteria RARE /HPF (None Seen) Influenza Type A Antigen Negative For Type A Influenza Type B Antigen Negative For Type B SARS-CoV-2 Antigen (Rapid) PRESUMPTIVE NEGATIVE Group A Streptococcus Rapid negative (NEGATIVE) Labs Reviewed?: Yes EKG/XRAY/US/CT/MRI X-RAY Comment REASON: Cough ORDERING PHYSICIAN: JORDY ESCOBAR PAC PROCEDURE: CXR1VW - CHEST 1VW EXAM: CR Chest, 1 View. CLINICAL HISTORY: Cough COMPARISON: 09/02/23 FINDINGS: LUNGS: There is no mass, infiltrate, or acute pulmonary abnormality. PLEURAL SPACES: No pleural effusion or pneumothorax. MEDIASTINUM: Cardiac size and mediastinal contours within normal limits. BONES: No acute osseous abnormality. IMPRESSION: No acute cardiopulmonary pathology is evident. /[facility] DICTATED BY: ANNIE SORIANO MD DATE: 07/06/25 1733 [facility] MDM: Differential diagnosis: Febrile illness, viral illness, UTI, pneumonia Rationale: 39-year-old female who presents to the emergency department due to a fever onset two days. Patient reports she has been taking Tylenol and Motrin to control the fever, last dose 2 hours ago. Reports cough, and frequent urination. Patient states her son was sick a week ago with similar symptoms. Denies significant past medical history. Per physical examination patient is in no acute distress, nonlabored breathing. SARS, flu, strep negative. Chest x-ray indicates no acute findings. UA shows 25 leukocyte esterase and 2-5 WBCs. Due to patient's urinary symptoms along with UA findings antibiotics prescribed for outpatient treatment. Patient was educated on findings and diagnosis. Advised to follow up with PCP. Return to the emergency department if any worsening symptoms. Patient verbalized understanding. Patient stable for discharge. There are no social concerns with this patient. I independently interpreted the test that were performed, results were reviewed by me and considered findings on radiology if ordered. Medical management and examination interpretation discussions were had by me with other qualified healthcare professionals as indicated for the patient's care. ED Course Orders Procedure Category Date Status Time Covid19 (Sars Antigen LAB 07/06/25 Complete Rapid) 15:33 Influenza Type A & B, LAB 07/06/25 Complete Rapid 15:33 Rapid (Group A Strep) LAB 07/06/25 Complete 15:33 Chest 1vw RAD 07/06/25 Resulted 15:33 Urinalysis LAB 07/06/25 Complete W/Microscopic 15:33 Vital Signs Date Time Temp Pulse Resp B/P (MAP) Pulse Ox O2 Delivery O2 Flow Rate FiO2 07/06/25 15:50 99.0 91 19 116/75 100 Room Air* 0 21 07/06/25 14:40 99.5 90 22 131/80 99 Room Air* 0 21 07/06/25 14:37 99.5 90 22 131/80 99 Room Air 0 DX & DISP Disposition: Discharge Departure Impression: Primary Impression: UTI (urinary tract infection) Additional Impression: Viral illness Condition: Stable Scripts Cephalexin (Cephalexin) 500 Mg Tablet 1 TAB PO BID for 7 Days, #14 TAB 0 Refills Prov: JORDY ESCOBAR 07/06/25 Additional Instructions: Discharge home. Rest. Follow up with primary care in 24 hours. Return to the ER for any acute changes or worsening symptoms. If any medications were prescribed take as directed. Okay to continue home medications unless otherwise discussed during your visit in the emergency room today. Patient was also advised to follow-up with primary care physician in 1 to 2 days for continued monitoring. Referrals: SELF,REFERRAL (PCP) I performed the substantive portion of the visit. I have reviewed and personally made and approve the management plan that is documented in the notes by myself or the JUANY. I acknowledge full responsibility for the patient's management plan. JORDY ESCOBAR Jul 06, 2025 16:58
== END 2025-07-06 17:11 | disposition home or self-care (01) ==
LOC: EDH 14:35
DX: N39.0 Urinary tract infection, site not specified (principal); B34.9 Viral infection, unspecified; Z90.49 Acquired absence of other specified parts of digestive tract; Z20.822 Contact with and (suspected) exposure to COVID-19
CPT/HCPCS: 71045; 81001; 87426; 87804; 87880; 99284

== ENCOUNTER 2025-09-19 12:52 | Emergency (ER) | payer OTHER ==
[~2025-09-19] VITALS: Ht 165.1 cm; Wt 63.0 kg
--- NOTE | 2025-09-19 13:24 | ERN ---
ED Note History of Present Illness Stated Complaint: FEVER Chief Complaint: Fever Time Seen by MD: 13:01 Dictation: PATIENT IS A 40-YEAR-OLD FEMALE COMING IN TODAY WITH FLU-LIKE SYMPTOMS TO INCLUDE FRONTAL HEADACHE SORE THROAT WITH PAINFUL SWALLOWING GENERALIZED BODY ACHES MALAISE. HE HAS HAD NAUSEA. 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 Allergies: Coded Allergies: No Known Allergies (Unverified Allergy, Unknown, 07/03/21) Home Meds Active Scripts Cephalexin (Cephalexin) 500 Mg Tablet, 1 TAB PO BID for 7 Days, #14 TAB 0 Refills Prov:JORDY ESCOBAR [facility] 07/06/25 Methylprednisolone (Medrol) 4 Mg Tab.ds.pk, 1 TAB PO AD for 6 Days, #21 TAB 0 Refills 6 on day 1 then reduce by one tablet daily until gone Prov:SAHARA BELTRÁN [facility] 05/26/25 Albuterol Sulfate (Ventolin Hfa/Proventil Hfa/Proair Hfa) 90 Mcg Puff, 2 PUFF IH Q4H for WHEEZING, #1 INHALER 0 Refills Prov:SAHARA BELTRÁN [facility] 05/26/25 Cephalexin Monohydrate (Keflex) 500 Mg Cap, 500 MG PO BID for 7 Days, #14 CAP Prov:EPHRAIM CANDELARIO [facility] 07/19/24 Acetaminophen with Codeine (Acetaminophen-Cod #3 Tablet) 300 Mg-30 Mg Tablet, 1 TAB PO Q4H PRN for MODERATE TO SEVERE, #12 TAB 0 Refills Prov:SAHARA BELTRÁN [facility] 05/18/24 Cephalexin (Cephalexin) 500 Mg Tablet, 500 MG PO BID for 7 Days, #14 TAB Prov:JORDY ESCOBAR [facility] 05/09/24 Fluticasone Propionate (Flonase Nasal [place]) 50 Mcg/Actuation [place], 1 SPRAY NASAL ONCE, #1 BOTTLE 0 Refills Prov:FITZ ROBERT [facility] 09/02/23 D-Methorphan Hb/P-Epd HCl/Bpm (Bromfed Dm Cough Syrup) 2 Mg-30 Mg-10 Mg/5 Ml Syrup, 10 ML PO Q6HPRN PRN for COUGH/COLD SYMPTOMS, #240 ML 0 Refills Prov:FITZ ROBERT [facility] 09/02/23 Amoxicillin/Potassium Clav (Amox Tr-K Clv 875-125 mg Tab) 875 Mg-125 Mg Tablet, 1 EACH PO BID for 10 Days, #20 TAB 0 Refills Prov:JAKOBFITZ [employer] 09/02/23 Ondansetron (Ondansetron Odt) 4 Mg Tab.rapdis, 4 MG PO TIDP, #21 TAB Prov:VIRAL ESCOBAR 05/14/22 Phenazopyridine HCl (Pyridium) 200 Mg Tab, 200 MG PO TIDPC for 3 Days, #9 TAB TAKE WITH FOOD TO PREVENT STOMACH UPSET. Prov:VIRAL ESCOBAR 05/14/22 Cephalexin Monohydrate (Keflex) 500 Mg Cap, 500 MG PO TID for 7 Days, #21 CAP Prov:VIRAL ESCOBAR 05/14/22 Clindamycin HCl (Clindamycin HCl) 300 Mg Capsule, 1 CAP PO QID for 10 Days, #40 CAP 0 Refills Prov:MADI GIBBONS MD 02/07/22 Ibuprofen (Ibuprofen) 600 Mg Tablet, 600 MG PO TID PRN for PAIN, #45 TAB Prov:VIRAL ESCOBAR 02/02/22 Cephalexin Monohydrate (Keflex) 500 Mg Cap, 500 MG PO TID for 7 Days, #21 CAP Prov:VIRAL ESCOBAR 02/02/22 Ibuprofen (Ibuprofen) 600 Mg Tablet, 600 MG PO Q6H PRN for PAIN, #7 TAB Prov:BABS GUAN [employer] 01/01/22 Brompheniram/Phenylephrine/Dm (Dimetapp Cold & Cough Liquid) 237 Ml Solution, 10 ML PO TID for 5 Days, #100 ML Prov:ALLA JURADO 10/03/21 Pseudoephedrine HCl (Sudafed 12 Hour) 120 Mg Tablet.er, 120 MG PO BID for 5 Days, #10 TAB Prov:ALLA JURADO 10/03/21 Ibuprofen (Ibuprofen) 600 Mg Tablet, 600 MG PO Q6H PRN for PAIN, #15 TAB Prov:ALLA JURADO 10/03/21 Acetaminophen (Acetaminophen) 650 Mg Tablet.er, 650 MG PO Q4H for 5 Days, #15 TAB Prov:ALLA JURADO 10/03/21 Amoxicillin/Potassium Clav (Augmentin 875-125 Tablet) 1 Each Tablet, 1 TAB PO BID for 10 Days, #20 TAB 0 Refills Prov:DIOMEDES CORONA NP 07/03/21 Past Medical History Past Medical History: No Pertinent History Additional Past Medical Hx: denies pmhx Surgical History: Appendectomy Surgical History Other: 2 ECTOPIC PREGANCIES. Family History: Negative Social History: ETOH : 7 Para: 4 Aborts: 3 RN Note Reviewed/Agreed w/PFSH: Yes Review of System Dictation CONSTITUTIONAL: NEGATIVE EXCEPT FOR HPI FEVER CHILLS/GENERALIZED BODY WEAKNESS EENT: NEGATIVE EXCEPT FOR HPI SORE THROAT RESPIRATORY: NEGATIVE EXCEPT FOR HPI GASTROINTESTINAL/ABDOMINAL: NEGATIVE EXCEPT FOR HPI GENITOURINARY: NEGATIVE EXCEPT FOR HPI MUSCULOSKELETAL: NEGATIVE EXCEPT FOR HPI INTEGUMENTARY: NEGATIVE EXCEPT FOR HPI NEUROLOGICAL/PSYCH: NEGATIVE EXCEPT FOR HPI HEMATOLOGIC/LYMPHATIC: NEGATIVE EXCEPT FOR HPI ALL SYSTEMS NEGATIVE, EXCEPT NOTED ABOVE. 13 POINT REVIEW OF SYSTEMS ASSESSED AND ALL NEGATIVE EXCEPT FOR ABOVE. Initial Vital Sign VS Vital Signs Date Time Temp Pulse Resp B/P (MAP) Pulse Ox O2 Delivery O2 Flow Rate FiO2 09/19/25 12:53 98.8 87 18 117/81 98 Room Air 09/19/25 13:15 0 21 Physical Exam Dictation VITAL SIGNS REVIEWED GENERAL APPEARANCE: ALERT, ORIENTED X 3, N MILD ACUTE DISTRESS, WELL DEVELOPED, NOURISHED. HEAD AND FACE: NON-TRAUMATIC. EYES: PERRL, PINK CONJUNCTIVAS, EYELID NO TRAUMA, ANTERIOR CHAMBER WITH ARCUS SENILIS. EARS: PINNAS INTACT AND NO SIGNS OF TRAUMA OR ERYTHEMA EAR CANALS CLEAR AND NO DISCHARGE TM NO ERYTHEMA NOSE: NO DISCHARGE, NO BLEEDING. OROPHARYNX: MOUTH NORMAL, TONGUE PINK, PHARYNX CLEAR, MILD PHARYNGEAL ERYTHEMA, TONSILS NO EXUDATES, NO ABSCESSES NOTED, MUCOUS MEMBRANE MOIST [place] MIDLINE VOICE IS CLEAR NECK: SUPPLE, NON-TENDER, NO THYROMEGALY, NO MASSES, NO JVD, NO BRUITS BREAST:DEFERRED CHEST:NO TENDERNESS, NO CREPITUS, NO PARADOXICAL MOVEMENT, NO RETRACTIONS LUNGS:CLEAR, WELL-VENTILATED, SYMMETRIC, NO RALES, NO WHEEZING, NO RHONCHI, NO STRIDOR, GOOD BREATH SOUNDS BILATERALLY HEART: REGULAR RATE, REGULAR RHYTHM, NO MURMUR, NO GALLOPS VASCULAR: NO PERIPHERAL EDEMA, ABDOMEN: SOFT, POSITIVE BOWEL SOUNDS, NONDISTENDED, NO GUARDING, NONTENDER, NO REBOUND, NO MASSES NO HEPATOMEGALY, NO SPLENOMEGALY, NO HUTCHISON'S SIGN, NO HERNIAS. NO FOCAL PAIN RECTAL: DEFERRED GENITAL: DEFERRED NEUROLOGICAL: NORMAL SPEECH, MOTOR FUNCTION INTACT, SENSORY FUNCTION INTACT MUSCULOSKELETAL: NECK NONTENDER, FULL RANGE OF MOTION, BACK NONTENDER, FULL RANGE OF MOTION, EXTREMITIES: NONTENDER, FULL RANGE OF MOTION SKIN: COLOR PINK, DRY, NO TURGOR, NO RASH, NO LACERATIONS, NO ABRASIONS, NO CONTUSIONS. LYMPHATIC: DEFERRED Results (Laboratory/Radiology) Laboratory/Radiology Laboratory Tests Test 09/19/25 08:02 09/19/25 13:35 09/19/25 13:55 Influenza Type A Antigen Negative For Type A Influenza Type B Antigen Negative For Type B SARS-CoV-2 Antigen (Rapid) PRESUMPTIVE NEGATIVE Group A Streptococcus Rapid negative (NEGATIVE) White Blood Count 7.1 K/uL (4.8-10.8) Red Blood Count 4.17 MIL/uL (4.00-5.50) Hemoglobin 7.8 g/dL (12.0-16.0) L Hematocrit 27.7 % (36-48) L Mean Corpuscular Volume 66.4 fL (79-99) L Mean Corpuscular Hemoglobin 18.7 pg (27.0-33.0) L Mean Corpuscular Hemoglobin Concent 28.2 g/dL (32.0-36.0) L Red Cell Distribution Width 19.5 % (11.0-15.5) H Platelet Count 281 K/uL (130-400) Mean Platelet Volume 8.9 fL (7.5-10.5) Immature Granulocyte % (Auto) 0.4 % (0-1) Neutrophils (%) (Auto) 79.9 % (40.0-77.0) H Lymphocytes (%) (Auto) 12.6 % (21.0-51.0) L Monocytes (%) (Auto) 6.4 % (3.0-13.0) Eosinophils (%) (Auto) 0.3 % (0.0-8.0) Basophils (%) (Auto) 0.4 % (0.0-5.0) Neutrophils # (Auto) 5.6 K/uL (1.8-7.7) Lymphocytes # (Auto) 0.9 K/uL (1.0-4.8) L Monocytes # (Auto) 0.5 K/uL (0.1-1.0) Eosinophils # (Auto) 0.02 K/uL (0.00-0.70) Basophils # (Auto) 0.03 K/uL (0.00-0.20) Absolute Immature Granulocyte (auto 0.03 K/uL (0-1) Nucleated Red Blood Cells 0.0 % (0.0-0.19) Red Blood Cell Morphology See comments Sodium Level 133 mmol/L (136-145) L Potassium Level 3.5 mmol/L (3.5-5.1) Chloride Level 100 mmol/L (101-111) L Carbon Dioxide Level 24 mmol/L (21-32) Blood Urea Nitrogen 6 mg/dL (7-18) L Creatinine 0.5 mg/dL (0.5-1.0) Glomerular Filtration Rate Calc 122 mL/min (>90) Random Glucose 113 mg/dL (70-105) H Total Calcium 8.5 mg/dL (8.5-10.1) Urine Color YELLOW (YELLOW) Urine Appearance CLOUDY (CLEAR) H Urine pH 6.5 (5.0-8.0) Urine Specific [place] 1.031 (1.001-1.031) Urine Protein 30 mg/dL (NEGATIVE) H Urine Glucose (UA) NEGATIVE mg/dL (NEGATIVE) Urine Ketones 150 mg/dL (NEGATIVE) H Urine Occult Blood NEGATIVE (NEGATIVE) Urine Nitrate NEGATIVE (NEGATIVE) Urine Bilirubin NEGATIVE mg/dL (NEGATIVE) Urine Urobilinogen 2.0 mg/dL (0.2-1.0) H Urine Leukocyte Esterase NEGATIVE [place]/uL Urine RBC 6-10 /HPF (0-1) H Urine WBC 2-5 /HPF (0-1) H Urine Squamous Epithelial Cells MANY /HPF (0-2) Urine Bacteria Rare /HPF (None Seen) Labs Reviewed?: Yes ED Course ED Course Orders Procedure Category Date Status Time Cbc With Differential LAB 09/19/25 Complete 13:21 Urinalysis Profile LAB 09/19/25 Complete 13:21 Basic Metabolic Panel LAB 09/19/25 Complete 13:21 Covid19 (Sars Antigen LAB 09/19/25 Complete Rapid) 13:21 Influenza Type A & B, LAB 09/19/25 Complete Rapid 13:21 Rapid (Group A Strep) LAB 09/19/25 Complete 13:21 Acetaminophen 500mg PHA 09/19/25 Complete Tab (Tylenol 500mg T 13:30 Current Medications Medications (Trade) Dose Ordered Sig/Pastor Route PRN Reason Start Time Stop Time Status Last Admin Dose Admin Acetaminophen (TYLenol 500MG TAB) 1,000 mg ONCE ONCE PO 09/19/25 13:30 09/19/25 13:31 DC 09/19/25 14:34 Vital Signs Date Time Temp Pulse Resp B/P (MAP) Pulse Ox O2 Delivery O2 Flow Rate FiO2 09/19/25 14:34 99.5 09/19/25 13:15 99.5 87 16 111/79 99 Room Air* 0 21 09/19/25 12:53 98.8 87 18 117/81 98 Room Air 1445/WORKUP ESSENTIALLY NEGATIVE. PATIENT WILL BE TREATED EMPIRICALLY FOR ACUTE PHARYNGITIS UNSPECIFIED DISCHARGED HOME WITH A AUGMENTIN AND TOLD NO WORK UNTIL 09/22/2025 Medical Decision Making MDM MDM: DIFFERENTIAL DIAGNOSIS: FLU/COVID/STREP THROAT/ACUTE PHARYNGITIS/ELECTROLYTE IMBALANCE/DEHYDRATION/UTI/ RATIONALE: TESTS CONSIDERED AND ORDERED SECONDARY TO SHARED DECISION MAKING INCLUDE: LABS/SWABS RISK OF COMPLICATION AND/OR MORBIDITY OR MORTALITY OF PATIENT MANAGEMENT: NONE MEDICATIONS-PER MEDICATION RECONCILIATION NEED FOR HOSPITALIZATION: PATIENT DOES NOT MEET CRITERIA FOR HOSPITALIZATION. NONE NEED FOR EMERGENCY MAJOR/MINOR SURGERY: NO THERE ARE NO SOCIAL CONCERNS WITH THIS PATIENT. PRESCRIPTION DRUG MANAGEMENT AUGMENTIN PRESCRIPTIONS WILL INCLUDE SYMPTOMATIC CARE PATIENT'S PRIOR EXTERNAL MEDICAL RECORDS FROM OTHER ER VISITS WERE REVIEWED BY ME INDICATED. PRIOR TESTING AND RESULTS FROM PREVIOUS VISITS WERE REVIEWED. PRIOR TESTS WERE TAKEN INTO ACCOUNT WITH MEDICAL DECISION MAKING AND RESOURCE UTILIZATION, INDEPENDENT HISTORIAN/HISTORIANS WERE USED TO OBTAIN COMPLETE MEDICAL HISTORY. I INDEPENDENTLY INTERPRETED THE TEST THAT WERE PERFORMED, RESULTS WERE REVIEWED BY ME AND CONSIDERED FINDINGS ON RADIOLOGY IF ORDERED. MEDICAL MANAGEMENT AND EXAMINATION INTERPRETATION DISCUSSIONS WERE HAD BY ME WITH OTHER QUALIFIED HEALTHCARE PROFESSIONALS INDICATED FOR THE PATIENT'S CARE. DX & DISP Disposition: Discharge Departure Impression: Primary Impression: Acute pharyngitis, unspecified Additional Impressions: Fever, Dehydration, Chronic anemia Condition: Stable Scripts Amoxicillin/Potassium Clav (Amox Tr-K Clv 875-125 mg Tab) 875 Mg-125 Mg Tablet 1 EACH PO BID for 10 Days, #20 TAB 0 Refills Prov: SAHARA BELTRÁN 09/19/25 Additional Instructions: FOLLOW-UP WITH PRIMARY CARE PROVIDER IN 1 TO 2 DAYS. TAKE MEDICATIONS DIRECTED HERE IN THE EMERGENCY ROOM. OKAY TO CONTINUE HOME MEDICATIONS UNLESS OTHERWISE DISCUSSED DURING YOUR VISIT IN THE EMERGENCY ROOM TODAY. RETURN TO YOUR NEAREST EMERGENCY ROOM IF SYMPTOMS WORSEN OR IF THERE IS NO IMPROVEMENT. CALL 911 IF YOU NEED IMMEDIATE ASSISTANCE. TAKE TYLENOL OR MOTRIN [id number] NEEDED AND IF NO CONTRAINDICATIONS ARE PRESENT. INCREASE ORAL HYDRATION. A WOUND CULTURE OR URINE CULTURE WAS ORDERED HERE IN THE EMERGENCY ROOM DEPARTMENT PLEASE FOLLOW-UP WITH PRIMARY CARE PROVIDER AND ADVISE THEM TO GET REPEAT PORTS FROM OUR FACILITY. IF YOU HAD ANY SOFY WRAP/SPLINTS THAT WERE APPLIED HERE, PLEASE DO NOT REMOVE THEM UNTIL YOU SEE YOUR PRIMARY CARE OR SPECIALTY. TAKE ANTIBIOTICS DIRECTED UNTIL GONE. INCREASE YOUR WATER INTAKE. NO WORK UNTIL 09/22/2025 FOLLOW UP WITH THE YOUR PRIMARY CARE DOCTOR NEEDED. Referrals: SELF,REFERRAL (PCP) Time of Disposition: 14:43 I have reviewed the case, and I agree with, Diagnosis and Plan SAHARA BELTRÁN Sep 19, 2025 13:24
[2025-09-19 13:43] LABS: IMMATURE GRANULOCYTE ABSOLUTE 0.03 K/uL (0-1); NUCLEATED RED BLOOD CELLS 0.0 % (0.0-0.19); PLATELET COUNT (AUTO) 281 K/uL (130-400); RED BLOOD CELL COUNT(AUTO) 4.17 MIL/uL (4.00-5.50); RED CELL DISTRIBUTION WIDTH 19.5 % (11.0-15.5); WHITE BLOOD COUNT (AUTO) 7.1 K/uL (4.8-10.8)
[2025-09-19 13:45] LABS: RAPID GROUP A STREP negative (NEGATIVE)
[2025-09-19 13:50] LABS: CREATININE 0.5 mg/dL (0.5-1.0); GLOMERULAR FILTR. RATE CALC 122.0 mL/min (>90); GLUCOSE,RANDOM 113.0 mg/dL (70-105); SODIUM SERUM 133.0 mmol/L (136-145); UREA NITROGEN, BLOOD 6.0 mg/dL (7-18)
[2025-09-19 13:56] LABS: COVID19 (SARS ANTIGEN RAPID) PRESUMPTIVE NEGATIVE (NEGATIVE); INFLUENZA TYPE A Negative For Type A (NEGATIVE); INFLUENZA TYPE B Negative For Type B (NEGATIVE)
[2025-09-19 14:15] LABS: APPEARANCE,URINE CLOUDY (CLEAR); GLUCOSE, URINE (UA) NEGATIVE (NEGATIVE); LEUKOCYTE ESTERASE ,URINE NEGATIVE Leu/uL (NEGATIVE); NITRATE,URINE NEGATIVE (NEGATIVE); OCCULT BLOOD,URINE NEGATIVE (NEGATIVE)
[2025-09-19 14:19] LABS: ADD UA MICROSCOPIC YES
[2025-09-19 14:23] LABS: SQUAMOUS EPITHELIAL CELL,UR MANY /HPF (0-2)
[2025-09-19 14:34] VITALS: TEMP 99.5
[2025-09-19] MEDS ORDERED: AMOX1TAB16 PO (14:44)
[2025-09-19 14:52] VITALS: BP 108/74; PULSE 84; RESP 16; TEMP 100.4; O2SAT 99
== END 2025-09-19 15:01 | disposition home or self-care (01) ==
LOC: EDH 12:52
DX: J02.9 Acute pharyngitis, unspecified (principal); E86.0 Dehydration; D64.9 Anemia, unspecified; Z90.49 Acquired absence of other specified parts of digestive tract; Z20.822 Contact with and (suspected) exposure to COVID-19
CPT/HCPCS: 36415; 80048; 81001; 85025; 87426; 87804; 87880; 99283